=== PATIENT | female | born 1930 | race Caucasian/White ===

== ENCOUNTER 2016-11-04 11:01 | Inpatient (IN) | payer MEDICARE ==
[~2016-11-04] VITALS: Ht 167.6 cm; Wt 59.0 kg
[~2016-11-04 11:01] MED LIST: CEFEPIME INJ 2,000 MG in SODIUM CHLORIDE 0.9% INJ 100 ML IV SCH; DONE5TAB7 PO; LATA0.002 EACH EYE; TIMO0.2517 EACH EYE; [UNRECOGNIZED DRUG - OTHER]
[2016-11-04 11:30] VITALS: BP 144/79; PULSE 108; RESP 14; TEMP 102.9; O2SAT 100
[2016-11-04 11:33] VITALS: RESP 14; O2SAT 99
--- NOTE | 2016-11-04 11:34 | PD ---
HPI Chief Complaint: Altered Mental Status Time Seen by Provider: 11:30 Travel History International Travel<30 days: No Contact w/Intl Traveler<30days: No Traveled to known affect area: No History of Present Illness HPI 86-year-old female that presents to the ED for evaluation of possible sepsis and altered mental status. Patient is on the last stages of dementia per ambulance report and she is essentially nonverbal. This is normal for her. Apparently she is staying at the house with the family and today patient was found to have a fever of 10 walk on her own. This is unusual for her. She has no signs of trauma. Other than the fever there is no other abnormal vital. Patient is nonverbal so I cannot obtain any information from her. No family at the bedside. No paperwork was brought with the patient. Apparently family did try to contact the primary care doctor and they recommended that she comes here for rule out sepsis. Again and minimal history is obtained from the patient secondary to her severe dementia. PFSH Past Medical History Alzheimer's Disease: Yes Arthritis: No Cancer: No Cardiovascular Problems: No High Cholesterol: Yes Cerebrovascular Accident: No Diabetes: No Diminished Hearing: No Endocrine: No Genitourinary: No Hepatitis: No Hiatal Hernia: No Hypertension: Yes Immune Disorder: No Musculoskeletal: No Neurologic: No Psychiatric: Yes (ALZHEIMERS DISEASE) Respiratory: No Migraines: No Seizures: No Thyroid Disease: No Menopausal: Yes Past Surgical History Abdominal Surgery: No AICD: No Cardiac Surgery: No Ear Surgery: No Endocrine Surgery: No Eye Surgery: Yes (LASER PERIPHERAL IRIDOTOMY BOTH EYES) Genitourinary Surgery: No Gynecologic Surgery: No Joint Replacement: No Oral Surgery: No Pacemaker: No Thoracic Surgery: No Other Surgery: Yes Social History Alcohol Use: No Tobacco Use: No Substance Use: No Allergies-Medications (Allergen,Severity, Reaction): Coded Allergies: No Known Allergies (Verified , 11/04/16) Reported Meds & Prescriptions Reported Meds & Active Scripts Active [Mattress] Mattress for Hospital Bed Dx: G30.9 Reported Donepezil 5 Mg Tab 5 Mg PO HS Latanoprost Opth Drops (Latanoprost) 0.005% Drops 1 Drop EACH EYE HS Refrigerate until opened. Timolol Maleate (Timolol Maleate (Ophth)) 0.25 % Juanita 1 Drop EACH EYE Q12HR Review of Systems Except as stated in HPI: all other systems reviewed are Neg Physical Exam Narrative GENERAL: SKIN: Warm and dry. HEAD: Atraumatic. Normocephalic. EYES: Pupils equal and round 4 mm round to light accommodation. No scleral icterus. No injection or drainage. ENT: No nasal bleeding or discharge. Mucous membranes pink and moist. Tongue is midline. No uvula deviation. NECK: Trachea midline. No JVD. CARDIOVASCULAR: Regular rate and rhythm. No murmurs, S3, S4. RESPIRATORY: No accessory muscle use. Clear to auscultation. Breath sounds equal bilaterally. GASTROINTESTINAL: Abdomen soft, non-tender, nondistended. Hepatic and splenic margins not palpable. MUSCULOSKELETAL: Extremities without clubbing, cyanosis, or edema. No obvious deformities. Full range of motion of the upper and lower extremities bilaterally. 2+ pulses bilaterally. Cannot assess ambulation. NEUROLOGICAL: Awake and alert and seems to focus on questioning but does not really answer questions. No obvious cranial nerve deficits. Motor grossly within normal limits. Five out of 5 muscle strength in the arms and legs. Normal speech. PSYCHIATRIC: Demented mood and affect; insight and judgment not present Data Data Last Documented VS Vital Signs Date Time Temp Pulse Resp B/P Pulse Ox O2 Delivery O2 Flow Rate FiO2 11/04/16 11:33 14 99 Nasal Cannula 2 11/04/16 11:33 108 11/04/16 11:30 102.9 144/79 Orders Electrocardiogram (11/04/16 11:21) Complete Blood Count With Diff (11/04/16 11:21) Comprehensive Metabolic Panel (11/04/16 11:21) Creatine Kinase (Cpk) (11/04/16 11:21) Ckmb (Isoenzyme) Profile (11/04/16 11:21) Troponin I (11/04/16 11:21) Prothrombin Time / Inr (Pt) (11/04/16 11:21) Act Partial Throm Time (Ptt) (11/04/16 11:21) Blood Culture (11/04/16 11:21) Lipase (11/04/16 11:21) Urinalysis - C+S If Indicated (11/04/16 11:21) Thyroid Stimulating Hormone (11/04/16 11:21) Chest, Single Ap (11/04/16 11:21) Ct Brain W/O Iv Contrast(Rout) (11/04/16 11:21) Iv Access Insert/Monitor (11/04/16 11:21) Ecg Monitoring (11/04/16 11:21) Oximetry (11/04/16 11:21) Urinary Catheter Insert/Apply (11/04/16 11:21) Lactic Acid (11/04/16 11:21) Sodium Chlor 0.9% 1000 Ml Inj (Ns 1000 M (11/04/16 12:10) Acetaminophen 325 Mg/10 Ml Liq (Tylenol (11/04/16 12:15) Urine Culture (11/04/16 12:00) Influenzae A/B Antigen (11/04/16 12:53) Cefepime Inj (Maxipime Inj) (11/04/16 12:53) Labs Laboratory Tests Test 11/04/16 11/04/16 11:40 12:00 White Blood Count 18.0 TH/MM3 Red Blood Count 4.80 MIL/MM3 Hemoglobin 14.0 GM/DL Hematocrit 42.1 % Mean Corpuscular Volume 87.7 FL Mean Corpuscular Hemoglobin 29.1 PG Mean Corpuscular Hemoglobin 33.2 % Concent Red Cell Distribution Width 14.5 % Platelet Count 275 TH/MM3 Mean Platelet Volume 9.7 FL Neutrophils (%) (Auto) 85.9 % Lymphocytes (%) (Auto) 6.0 % Monocytes (%) (Auto) 7.8 % Eosinophils (%) (Auto) 0.0 % Basophils (%) (Auto) 0.3 % Neutrophils # (Auto) 15.5 TH/MM3 Lymphocytes # (Auto) 1.1 TH/MM3 Monocytes # (Auto) 1.4 TH/MM3 Eosinophils # (Auto) 0.0 TH/MM3 Basophils # (Auto) 0.1 TH/MM3 CBC Comment DIFF FINAL Differential Comment Prothrombin Time 11.3 SEC Prothromb Time International 1.0 RATIO Ratio Activated Partial 28.9 SEC Thromboplast Time Sodium Level 135 MEQ/L Potassium Level 4.6 MEQ/L Chloride Level 101 MEQ/L Carbon Dioxide Level 25.7 MEQ/L Anion Gap 8 MEQ/L Blood Urea Nitrogen 12 MG/DL Creatinine 0.90 MG/DL Estimat Glomerular Filtration 60 ML/MIN Rate Random Glucose 122 MG/DL Lactic Acid Level 2.1 mmol/L Calcium Level 8.8 MG/DL Total Bilirubin 0.8 MG/DL Aspartate Amino Transf 19 U/L (AST/SGOT) Alanine Aminotransferase 14 U/L (ALT/SGPT) Alkaline Phosphatase 193 U/L Total Creatine Kinase 55 U/L Troponin I LESS THAN 0.02 NG/ML Total Protein 8.6 GM/DL Albumin 3.6 GM/DL Lipase 92 U/L Thyroid Stimulating Hormone 1.400 uIU/ML 3rd Gen Urine Color YELLOW Urine Turbidity HAZY Urine pH 8.0 Urine Specific [place] 1.015 Urine Protein 30 mg/dL Urine Glucose (UA) NEG mg/dL Urine Ketones NEG mg/dL Urine Occult Blood MOD Urine Nitrite NEG Urine Bilirubin NEG Urine Urobilinogen LESS THAN 2.0 MG/DL Urine Leukocyte Esterase LARGE Urine RBC 27 /hpf Urine WBC 81 /hpf Urine Squamous Epithelial 1 /hpf Cells Urine Transitional Epithelial 1 /hpf Cells Urine Amorphous Sediment RARE Microscopic Urinalysis Comment CULTURE INDICATED MDM Medical Decision Making Medical Screen Exam Complete: Yes Emergency Medical Condition: Yes Medical Record Reviewed: Yes Interpretation(s) CBC & BMP Diagram 11/04/16 11:40 troponin and CKMB negative CK WNL TSH WNL coags WNL LFTS and lipase WNL lactic 2.[address] negative EKG shows sinus rhythm with a sign of acute ischemia or arrhythmia. Read by me and attending. Differential Diagnosis Dementia versus Alzheimer's versus altered mental status versus sepsis versus pneumonia versus URI versus UTI Narrative Course 86-year-old female that presents to the ED for evaluation of possible sepsis. Patient was properly examined and was found to have signs and symptoms consistent what appears to be sepsis. Labs and imaging ordered. Labs and imaging showed symptoms of sepsis. Likely UTI. Chest x-ray and CT were negative. No sign of heart disease at this time. My recommendation at this time is for admission for IV fluids and antibiotics. Patient was already given a liter before waiting for labs. Patient will be started on IV antibiotics. Case was discussed with attending who agrees with plan and admission. This was discussed with the family who did show up and provide information that patient apparently is actually non-ambulatory and usually ambulates in a wheelchair or with assistance. Patient enough had a fall. Patient was at baseline yesterday but today she was more somnolent and when awake To who they state patient always wakes up at 9:30 like a work but today she was not arousable. Other than this no other symptoms. Other than the fever noted. Labs did show UTI. Family is agreeable with admission to the hospital for IV antibiotic some fluids. Case discussed with my attending Dr. Mcfadden who agrees to admission. Residents were contacted and they agreed to admission. 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
[2016-11-04 11:56] LABS: AUTOMATED NEUTROPHIL # 15.5 TH/MM3 (1.8-7.7); BASOPHIL # 0.1 TH/MM3 (0-0.2); BASOPHIL % 0.3 % (0.0-2.0); HEMATOCRIT 42.1 % (35.0-46.0); HEMO FLAGS DIFF FINAL; LYMPHOCYTE # 1.1 TH/MM3 (1.0-4.8); MEAN CELL VOLUME 87.7 FL (80.0-100.0); MEAN CORPUSCULAR HEMOGLOBIN 29.1 PG (27.0-34.0); MEAN CORPUSCULAR HGB CONC 33.2 % (32.0-36.0); MONO % 7.8 % (0.0-8.0); NEUT % 85.9 % (16.0-70.0); PLATELET COUNT 275 TH/MM3 (150-450); RED CELL DISTRIBUTION WIDTH 14.5 % (11.6-17.2)
[2016-11-04 12:07] LABS: PROTHROMBIN TIME - PATIENT 11.3 SEC (9.8-11.6)
[2016-11-04 12:08] LABS: APTT (PATIENT) 28.9 SEC (24.3-30.1)
[2016-11-04] MEDS ORDERED: SODIUM CHLOR 0.9% 1000 ML INJ 1,000 ML IV ONE (12:10)
[2016-11-04] MEDS ORDERED: ACETAMINOPHEN 325 MG/10.15 ML UDC PO ONE (12:15)
[2016-11-04 12:33] LABS: ALKALINE PHOSPHATASE 193 U/L (45-117); ALT (GPT) 14 U/L (10-53); ANION GAP 8 MEQ/L (5-15); BICARBONATE 25.7 MEQ/L (21.0-32.0); BLOOD UREA NITROGEN 12 MG/DL (7-18); CHLORIDE 101 MEQ/L (98-107); GLOMERULAR FILTRATION RATE 60 ML/MIN (>89); SODIUM (NA) 135 MEQ/L (136-145); TOTAL BILIRUBIN ADULT 0.8 MG/DL (0.2-1.0)
[2016-11-04 12:34] LABS: AST (GOT) 19 U/L (15-37); CREATINE KINASE 55 U/L (26-192); POTASSIUM 4.6 MEQ/L (3.5-5.1)
[2016-11-04 12:36] LABS: BLOOD, URINE MOD (NEG); GLUCOSE,URINE NEG (NEG); KETONE, URINE NEG (NEG); NITRITE,URINE NEG (NEG); SQUAMOUS EPITHELIAL CELL URINE 1 /hpf (0-5); TRANSITIONAL EPI CELLS, URINE 1 /hpf; URINE COLOR YELLOW (YELLW/STRAW)
[2016-11-04 12:48] LABS: COMMENT (UR) CULTURE INDICATED; CULTURE IF INDICATED CULTURE INDICATED
[2016-11-04] MEDS ORDERED: CEFEPIME INJ 2,000 MG in SODIUM CHLORIDE 0.9% INJ 100 ML IV STA (12:53)
--- NOTE | 2016-11-04 12:59 | RADRPT ---
EXAM DATE/TIME: 11/04/2016 12:09 [facility] COMPARISON: No previous studies available for comparison. INDICATIONS : Unable to walk today. RADIATION DOSE: 30.11 CTDIvol (mGy) MEDICAL HISTORY : Hypertension. Alzheimer's. SURGICAL HISTORY : Eye surgery ENCOUNTER: Initial ACUITY: 2 days PAIN SCALE: Non-responsive LOCATION: cranial TECHNIQUE: Multiple contiguous axial images were obtained of the head. Using automated exposure control and adj ustment of the mA and/or kV according to patient size, radiation dose was kept as low as reasonably a chievable to obtain optimal diagnostic quality images. FINDINGS: CEREBRUM: The ventricles are mildly prominent for age. There is diffuse bilateral cortical atrophy. No evidenc e of midline shift, mass lesion, hemorrhage or acute infarction. No extra-axial fluid collections ar e seen. POSTERIOR FOSSA: The cerebellum and brainstem are intact. The 4th ventricle is midline. The cerebellopontine angle i s unremarkable. EXTRACRANIAL: The visualized portion of the orbits is intact. SKULL: The calvaria is intact. No evidence of skull fracture. CONCLUSION: 1. No focal or acute intracranial hemorrhage. 2. Diffuse bilateral cortical atrophy. There is some prominence of the ventricles. This can be associ ated with patient's cortical atrophy. Normal pressure hydrocephalus would be a second consideration w hich would need to be correlated with patient's physical and clinical exam. Haile Navarro MD on November 04, 2016 at 12:56 Board Certified Radiologist. This report was verified electronically.
--- NOTE | 2016-11-04 14:10 | RADRPT ---
EXAM DATE/TIME: 11/04/2016 13:23 [facility] COMPARISON: CHEST SINGLE AP, April 09, 2015, 13:13. INDICATIONS : Fever. MEDICAL HISTORY : None. SURGICAL HISTORY : None. ENCOUNTER: Initial ACUITY: 1 day PAIN SCORE: Non-responsive. LOCATION: Bilateral chest FINDINGS: The cardiac silhouette is enlarged in transverse diameter. The patient is rotated into the right post erior oblique position. The lungs are free of acute parenchymal opacity. No effusions are identified. CONCLUSION: 1. Cardiomegaly. No acute pulmonary disease. Anoop Mike MD on November 04, 2016 at 14:09 Board Certified Radiologist. This report was verified electronically.
--- NOTE | 2016-11-04 14:17 | HHI.HP ---
[facility] Service Family Medicine Primary Care Physician Mark Nevarez MD Admission Diagnosis altered mental status, urosepsis, dementia Diagnoses: Chief Complaint: Patient unarousable International Travel<30 Days: No Contact w/Intl Traveler<30days: No Known Affected Area: No History of Present Illness Michelle Rodgers is an 86 year old female with Alzheimer's disease brought to ED by [facility] after her was unable to arouse her this morning. Her states he wakes her up every morning at 09:30 without difficulty however this morning the patient was completely unarousable. He states she could not open her eyes and was non-verbal. He states the patient was at her baseline status throughout all of yesterday and fell asleep at what is now her normal state of health. states at baseline the patient is unable to walk around on her own and unable to feed herself. She is verbal, however due to her late-stage dementia she will speak randomly and is primarily unable to carry out a conversation. The denies any recent signs or symptoms of an illness, he denies any recent fevers, cough, urinary complaints from the patient or any foul -smelling urine, rhinorrhea or congestion, no complaints of abdominal pain or diarrhea or N/V. He denies any incontinence from the patient when going to wake her up this morning. Denies any history of seizures or any seizure-like activity today. No other sick contacts. He states her appetite has not changed recently. (Mikal Ramsey MD R1) Review of Systems ROS Limitations: Clinical Condition (Mikal Ramsey MD R1) Past Family Social History Past Medical History HTN HLD Alzheimer's disease Past Surgical History Bilateral laser peripheral iridotomy Reported Medications Reported Meds & Active Scripts Active [Mattress] Mattress for Hospital Bed Dx: G30.9 Reported Donepezil 5 Mg Tab 5 Mg PO HS Latanoprost Opth Drops (Latanoprost) 0.005% Drops 1 Drop EACH EYE HS Refrigerate until opened. Timolol Maleate (Timolol Maleate (Ophth)) 0.25 % Juanita 1 Drop EACH EYE Q12HR ( Mikal Ramsey MD R1) Allergies: Coded Allergies: No Known Allergies (Verified , 11/04/16) Family History Noncontributory Social History Lives at home with her (BraulioMikal LISA R1) Physical Exam Vital Signs Vital Signs Date Time Temp Pulse Resp B/P Pulse Ox O2 Delivery O2 Flow Rate FiO2 11/04/16 11:33 14 99 Nasal Cannula 2 11/04/16 11:33 108 14 100 Nasal Cannula 2 11/04/16 11:30 102.9 108 14 144/79 100 Physical Exam GENERAL: Lying in bed with eyes closed, appears comfortable, skin is not clammy or moist, intermittently able to move all extremities spontaneously, she did not open her eyes at any point during the examination. It did seem she softly said her name Michelle when she addressed during the exam. NEURO: Obtunded. Unable to open eyes. Able to move extremities spontaneously. Patellar reflex 2+ b/l. SKIN: Her skin is warm throughout including her feet but not clammy or moist. Feels well perfused. No skin breakdown anywhere including low back and buttock. Multiple SKs on back. HEAD: Normocephalic. Atraumatic. EYES: Her left eye pupil is irregular with jagged edges and very slightly reactive to light, right eye is round and reactive. No injection. ENT: No nasal drainage. Moist mucous membranes. No oral ulcers or lesions. NECK: Supple, trachea midline. No JVD. No carotid bruits. CARDIOVASCULAR: Tachycardic rate, regular rhythm without murmurs, rubs, or gallops. Radial, DP and PT pulses are 2+ bilaterally. Brisk capillary refill < 2 seconds. RESPIRATORY: Breath sounds clear to auscultation and equal bilaterally, without wheezes, rales, or rhonchi. No accessory muscle use. GASTROINTESTINAL: Abdomen soft, appears to be nontender, nondistended, normal BS. No organomegaly or masses. No rebound tenderness. MUSCULOSKELETAL: No edema, cyanosis, or clubbing. BACK: No obvious deformity. No skin breakdown. Laboratory Laboratory Tests Test 11/04/16 11/04/16 11:40 12:00 White Blood Count 18.0 Red Blood Count 4.80 Hemoglobin 14.0 Hematocrit 42.1 Mean Corpuscular Volume 87.7 Mean Corpuscular Hemoglobin 29.1 Mean Corpuscular Hemoglobin 33.2 Concent Red Cell Distribution Width 14.5 Platelet Count 275 Mean Platelet Volume 9.7 Neutrophils (%) (Auto) 85.9 Lymphocytes (%) (Auto) 6.0 Monocytes (%) (Auto) 7.8 Eosinophils (%) (Auto) 0.0 Basophils (%) (Auto) 0.3 Neutrophils # (Auto) 15.5 Lymphocytes # (Auto) 1.1 Monocytes # (Auto) 1.4 Eosinophils # (Auto) 0.0 Basophils # (Auto) 0.1 CBC Comment DIFF FINAL Differential Comment Prothrombin Time 11.3 Prothromb Time International 1.0 Ratio Activated Partial 28.9 Thromboplast Time Sodium Level 135 Potassium Level 4.6 Chloride Level 101 Carbon Dioxide Level 25.7 Anion Gap 8 Blood Urea Nitrogen 12 Creatinine 0.90 Estimat Glomerular Filtration 60 Rate Random Glucose 122 Lactic Acid Level 2.1 Calcium Level 8.8 Total Bilirubin 0.8 Aspartate Amino Transf 19 (AST/SGOT) Alanine Aminotransferase 14 (ALT/SGPT) Alkaline Phosphatase 193 Total Creatine Kinase 55 Troponin I LESS THAN 0.02 Total Protein 8.6 Albumin 3.6 Lipase 92 Thyroid Stimulating Hormone 1.400 3rd Gen Urine Color YELLOW Urine Turbidity HAZY Urine pH 8.0 Urine Specific [place] 1.015 Urine Protein 30 Urine Glucose (UA) NEG Urine Ketones NEG Urine Occult Blood MOD Urine Nitrite NEG Urine Bilirubin NEG Urine Urobilinogen LESS THAN 2.0 Urine Leukocyte Esterase LARGE Urine RBC 27 Urine WBC 81 Urine Squamous Epithelial 1 Cells Urine Transitional Epithelial 1 Cells Urine Amorphous Sediment RARE Microscopic Urinalysis Comment CULTURE INDICATED Date/Time Procedure Status Source Growth 11/04/16 12:00 Urine Culture Received Urine Clean Catch Pending 11/04/16 11:45 Aerobic Blood Culture Received Blood Peripheral Pending 11/04/16 11:45 Anaerobic Blood Culture Received Blood Peripheral Pending (Mikal Ramsey MD R1) Result Diagram: 11/04/16 1140 11/04/16 1140 Imaging Last [address] 11/04/16 1121 Signed Impressions: Service Date/Time: October 12:09 - CONCLUSION: 1. No focal or acute intracranial hemorrhage. 2. Diffuse bilateral cortical atrophy. There is some prominence of the ventricles. This can be associated with patient's cortical atrophy. Normal pressure hydrocephalus would be a second consideration which would need to be correlated with patient's physical and clinical exam. Haile Navarro MD Chest X-Ray 11/04/16 1121 Signed Impressions: Service Date/Time: October 13:23 - CONCLUSION: 1. Cardiomegaly. No acute pulmonary disease. Anoop Mike MD (Mikal Ramsey MD R1) Septic Shock Reassessment Heart: Other (Tachycardic) Lungs: Clear Skin: Warm, Dry Peripheral Pulses: Bounding Right Radial Bounding Left Radial Bounding Right Dorsalis Pedis Bounding Left Dorsalis Pedis Bounding Right Posterior Tibial Bounding Left Posterior Tibial Capillary Refill: Brisk (Mikal Ramsey MD R1) Assessment and Plan Assessment and Plan Michelle Rodgers is an 86 year old female with Alzheimer's disease brought to ED by [facility] after her was unable to arouse her this morning. She will be admitted and managed for the following: Code Status DNR/DNI Discussed Condition With sdw Dr. Bill Izaguirre (Mikal Ramsey MD R1) Problem List: (1) UTI (urinary tract infection) Status: Acute Plan: Temp of 102.9F taken axillary in the ED. Tachycardic up to 108. Labs significant for leukocytosis to 18.0 and lactic acid of 2.1 Cath specimen UA with large leukocyte esterase, negative nitrite, 81 WBCs. Arana catheter was placed by ED staff; patient did not have an indwelling catheter prior to arrival Urine culture pending 1L NS bolus given in the ED Will continue NS at 100 mL/hr Received 2gm IV Cefepime in ED Continue Cefepime 2 gm IV q12h (2) Sepsis Status: Acute Plan: Meets sepsis criteria Blood and urine cultures obtained Received 1L NS in the ED The patient appears well perfused with just mildly elevated lactic acid of 2.1. We will hold from giving additional fluid boluses at this time however will monitor her vital signs closely and continue to trend her lactic acid q4h and bolus if needed Continue NS at 100 mL/hr Antibiotics as above (3) Alzheimer disease Status: Chronic Plan: Continue Donepezil (4) Nutrition, metabolism, and development symptoms Status: Acute Plan: Fluids: 1L NS given in ED. Continue NS at 100 mL/hr Electrolytes: Na 135, continue to monitor BMP Nutrition: NPO DVT PPX: Lovenox 40 mg subq q24h (Mikal Ramsey MD R1) Physician Certification 2 Midnight Certification Type: Admission for Inpatient Services Order for Inpatient Services The services are ordered in accordance with Medicare regulations or non- Medicare payer requirements, as applicable. In the case of services not specified as inpatient-only, they are appropriately provided as inpatient services in accordance with the 2-midnight benchmark. Estimated LOS (days): 2 days is the estimated time the patient will need to remain in the hospital, assuming treatment plan goals are met and no additional complications. Post-Hospital Plan: Home (Mikal Ramsey MD R1) 2 Midnight Certification Type: Admission for Inpatient Services Post-Hospital Plan: Not yet determined (John Izaguirre MD) Problem Qualifiers (1) UTI (urinary tract infection): Qualified Code: N30.00 - Acute cystitis without hematuria (2) Sepsis: Qualified Code: A41.9 - Sepsis, due to unspecified organism Mikal Ramsey MD R1 Nov 04, 2016 14:17 John Izaguirre MD Nov 04, 2016 16:26
[2016-11-04] MEDS: SODIUM CHLORIDE 0.9% FLUSH 5 ML FLUSH FLUSH SCH ×2 (15:00→20:58)
[2016-11-04] MEDS ORDERED: NALOXONE HCL 0.4 MG/ML AMP IV PRN (15:00)
[2016-11-04] MEDS ORDERED: SODIUM CHLORIDE 0.9% FLUSH 5 ML FLUSH FLUSH PRN (15:00)
[2016-11-04] MEDS ORDERED: ACETAMINOPHEN 325 MG TAB PO PRN (15:00)
[2016-11-04 15:14] VITALS: O2SAT 97
[2016-11-04] MEDS: SODIUM CHLOR 0.9% 1000 ML INJ 1,000 ML IV SCH ×2 (15:41→23:59)
[2016-11-04 15:48] VITALS: BP 144/70; PULSE 100; RESP 16; TEMP 100.7; O2SAT 100
[2016-11-04] MEDS: ENOXAPARIN SODIUM 40 MG/0.4 ML SYRINGE SQ SCH (16:00)
--- NOTE | 2016-11-04 17:06 | HHI.FPPN ---
Subjective Remarks Attending note: 86-year-old woman, patient of Dr. Rodney Nevarez, admitted with altered mental status, temperature 102, abnormal urinalysis. Patient's and son are at bedside and provides the history. The patient herself is unable to provide any meaningful history. relates that she's had Alzheimer's dementia for at least 7-8 years, is totally dependent on him for care with regards to dressing, meals, and essentially total body care. states they were out to dinner last night, she was at her baseline state which is generally being transported by a wheelchair, and at the time had no unusual signs of infection including cough, reports of vomiting or diarrhea. This morning her noticed that she was unarousable and this was a definite change in her mental status. Please see resident history and physical for complete discussion of past medical history, family history social history and review of systems. The review of systems was obtained from the , the patient is unable to give any meaningful history. Objective Vitals Vital Signs Date Time Temp Pulse Resp B/P Pulse Ox O2 Delivery O2 Flow Rate FiO2 11/04/16 15:48 100.7 100 16 144/70 100 Nasal Cannula 2 11/04/16 15:14 97 Nasal Cannula 2.00 11/04/16 11:33 14 99 Nasal Cannula 2 11/04/16 11:33 108 14 100 Nasal Cannula 2 11/04/16 11:30 102.9 108 14 144/79 100 Result Diagram: 11/04/16 1140 11/04/16 1140 Objective Remarks Vital signs noted. Temperature earlier axillary was 102.9. Gen. appearance: Elderly woman who appears very withdrawn, eyes are closed and unable to cooperate with exam. Significant hypertonia of the upper and lower extremities. HEENT: Unable to open patient's mouth with tongue depressor. Lungs: Diminished breath sounds, appear clear to auscultation. Cardiac: Distant sounds S1-S2, increased rate, rhythm regular Abdomen: As best able to examine due to soft and nontender. Flexed hypertonic arms make abdominal exam suboptimal Extremities: Supple calves, feet are warm and dry, intact pedal pulses. Neurologic: Does not indicate orally, hypertonic extremities Please refer to resident's physical exam for complete discussion of details of exam. A/P Assessment and Plan Clinical assessment: 86-year-old woman totally dependent on her for activities of daily living admitted with altered mental status, fever, abnormal urine and clinical diagnosis of probable UTI with possible bacteremia, possible sepsis. History of glaucoma. Discussed with Dr. Nevarez and resident team. Patient seen and examined. Case reviewed and discussed with resident team. Agree with plan of care as discussed with me and documented in the resident note. Follow clinically. Patient is DNR, DNI. Problem List: (1) UTI (urinary tract infection) Status: Acute Plan: Temp of 102.9F taken axillary in the ED. Tachycardic up to 108. Labs significant for leukocytosis to 18.0 and lactic acid of 2.1 Cath specimen UA with large leukocyte esterase, negative nitrite, 81 WBCs. Arana catheter was placed by ED staff; patient did not have an indwelling catheter prior to arrival Urine culture pending 1L NS bolus given in the ED Will continue NS at 100 mL/hr Received 2gm IV Cefepime in ED Continue Cefepime 2 gm IV q12h (2) Sepsis Status: Acute Plan: Meets sepsis criteria Blood and urine cultures obtained Received 1L NS in the ED The patient appears well perfused with just mildly elevated lactic acid of 2.1. We will hold from giving additional fluid boluses at this time however will monitor her vital signs closely and continue to trend her lactic acid q4h and bolus if needed Continue NS at 100 mL/hr Antibiotics as above (3) Alzheimer disease Status: Chronic Plan: Continue Donepezil (4) Nutrition, metabolism, and development symptoms Status: Acute Plan: Fluids: 1L NS given in ED. Continue NS at 100 mL/hr Electrolytes: Na 135, continue to monitor BMP Nutrition: NPO DVT PPX: Lovenox 40 mg subq q24h Problem Qualifiers (1) UTI (urinary tract infection): Qualified Code: N30.00 - Acute cystitis without hematuria (2) Sepsis: Qualified Code: A41.9 - Sepsis, due to unspecified organism John Izaguirre MD Nov 04, 2016 17:06
[2016-11-04 18:23] LABS: LACTIC ACID GHOST NOT REPORTABLE
[2016-11-04 20:00] VITALS: BP 110/62; PULSE 52; RESP 18; TEMP 97.6; O2SAT 97
[2016-11-04] MEDS: DONEPEZIL HCL 5 MG TAB PO SCH (20:58)
[2016-11-05] VITALS (10 sets, daily range): BP systolic 112–156; BP diastolic 62–78; PULSE 74–101; RESP 18–24; TEMP 96.8–100.8; O2SAT 93–99
[2016-11-05] MEDS: CEFEPIME INJ 2,000 MG in SODIUM CHLORIDE 0.9% INJ 100 ML IV SCH ×2 (01:32→15:07)
[2016-11-05 06:08] LABS: BASOPHIL % 0.2 % (0.0-2.0); EOSINOPHIL % 0.1 % (0.0-4.0); HEMATOCRIT 37.2 % (35.0-46.0); LYMPH % 9.1 % (9.0-44.0); MEAN CELL VOLUME 87.6 FL (80.0-100.0); MEAN CORPUSCULAR HEMOGLOBIN 29.7 PG (27.0-34.0); MEAN CORPUSCULAR HGB CONC 33.9 % (32.0-36.0); MONO % 9.9 % (0.0-8.0); NEUT % 80.7 % (16.0-70.0); PLATELET COUNT 200 TH/MM3 (150-450); RED BLOOD COUNT 4.24 MIL/MM3 (4.00-5.30); RED CELL DISTRIBUTION WIDTH 14.5 % (11.6-17.2); WHITE BLOOD COUNT 22.2 TH/MM3 (4.0-11.0)
[2016-11-05 06:12] LABS: HEMO FLAGS AUTO DIFF
[2016-11-05 06:40] LABS: ALKALINE PHOSPHATASE 142 U/L (45-117); ALT (GPT) 11 U/L (10-53); ANION GAP 7 MEQ/L (5-15); AST (GOT) 12 U/L (15-37); BICARBONATE 23.9 MEQ/L (21.0-32.0); BLOOD UREA NITROGEN 17 MG/DL (7-18); CHLORIDE 109 MEQ/L (98-107); GLOMERULAR FILTRATION RATE 76 ML/MIN (>89); POTASSIUM 3.8 MEQ/L (3.5-5.1); SODIUM (NA) 140 MEQ/L (136-145); TOTAL BILIRUBIN ADULT 0.8 MG/DL (0.2-1.0)
[2016-11-05] MEDS: SODIUM CHLORIDE 0.9% FLUSH 5 ML FLUSH FLUSH SCH ×2 (07:32→20:48)
[2016-11-05] MEDS: SODIUM CHLOR 0.9% 1000 ML INJ 1,000 ML IV SCH ×3 (07:59→15:35)
--- NOTE | 2016-11-05 08:03 | RADRPT ---
EXAM DATE/TIME: 11/05/2016 07:25 [facility] COMPARISON: CHEST SINGLE AP, April 09, 2015, 13:13. CHEST SINGLE AP, November 04, 2016, 13:23. INDICATIONS : Short of breath. Pneumonia. MEDICAL HISTORY : Hypertension. Hypercholesterolemia. Alzeimer's. SURGICAL HISTORY : Eye surgery. Right hip. ENCOUNTER: Subsequent ACUITY: 2 days PAIN SCORE: Non-responsive. LOCATION: chest FINDINGS: A single view of the chest demonstrates the lungs to be symmetrically aerated without evidence of mas s, infiltrate or effusion. The patient is rotated towards the right. The cardiomediastinal contours are unremarkable. There appear to be compressive changes at T12. CONCLUSION: No acute cardiopulmonary disease. There does appear to be some compression at T12. Case Stubbs MD on November 05, 2016 at 8:00 Board Certified Radiologist. This report was verified electronically.
[2016-11-05 09:13] LABS: SCAN/DIFF AUTO DIFF CONFIRMED
--- NOTE | 2016-11-05 09:35 | HHI.FPPN ---
Subjective Remarks No events overnight. Patients fever has resolved. Vitals are within normal limits. Patients daughter in law report Michelle is at her baseline neurological status. Patient is awake and alert this morning. Her requested this morning for a diet and ensure supplements which is her normal diet at home. The daughter in laws only complaints this morning is that Neeru peripheral IV line infiltrated and she now has some swelling of her right distal arm, this has significantly improved from earlier this morning. She is otherwise without complaints or concerns. Objective Vitals Vital Signs Date Time Temp Pulse Resp B/P Pulse Ox O2 Delivery O2 Flow Rate FiO2 11/05/16 08:00 96.8 79 18 114/62 98 11/05/16 05:12 97 Nasal Cannula 2.00 11/05/16 05:00 97.0 74 24 125/65 95 11/05/16 01:00 97.9 11/05/16 01:00 97.9 80 21 130/67 93 11/04/16 20:00 97.6 52 18 110/62 97 11/04/16 15:48 100.7 100 16 144/70 100 Nasal Cannula 2 11/04/16 15:14 97 Nasal Cannula 2.00 11/04/16 11:33 14 99 Nasal Cannula 2 11/04/16 11:33 108 14 100 Nasal Cannula 2 11/04/16 11:30 102.9 108 14 144/79 100 I/O 11/04/16 11/04/16 11/04/16 11/05/16 11/05/16 11/05/16 07:00 15:00 23:00 07:00 15:00 23:00 Intake Total 500 ml Output Total 700 ml Balance -200 ml Intake Oral 500 ml Output Urine Total 700 ml # Bowel Movements 0 Result Diagram: 11/05/16 0536 11/05/16 0536 Objective Remarks GENERAL: Lying comfortably in bed with eyes opened, skin is not clammy or moist. NEURO: Awake and alert. Verbal briefly. Unable to follow commands consistently. Able to move extremities spontaneously. SKIN: Her skin is warm throughout including her feet but not clammy or moist. Feels well perfused. No skin breakdown. HEAD: Normocephalic. Atraumatic. EYES: Her left pupil is irregular with jagged edges and very slightly reactive to light, right eye is round and reactive. No injection. ENT: No nasal drainage. Moist mucous membranes. No oral ulcers or lesions. NECK: Supple, trachea midline. No JVD. CARDIOVASCULAR: Regular rate and rhythm without murmurs, rubs, or gallops. Radial, DP and PT pulses are 2+ bilaterally. Brisk capillary refill < 2 seconds. RESPIRATORY: Breath sounds clear to auscultation and equal bilaterally, without wheezes, rales, or rhonchi. No accessory muscle use. GASTROINTESTINAL: Abdomen soft, appears to be nontender, nondistended, normal BS. No organomegaly or masses. No rebound tenderness. MUSCULOSKELETAL: No edema, cyanosis, or clubbing. BACK: No obvious deformity. No skin breakdown. A/P Assessment and Plan Michelle Rodgers is an 86 year old female with Alzheimer's disease brought to ED by [facility] after her was unable to arouse her the morning of 11/04. She is admitted and managed for the following: Discharge Planning Anticipate discharge home tomorrow. Problem List: (1) UTI (urinary tract infection) Status: Acute Plan: Fever and tachycardia resolved Leukocytosis increased to 22.2 Lactic acid downtrended to 0.8, reassuring Cath specimen UA with large leukocyte esterase, negative nitrite, 81 WBCs. Arana catheter was placed by ED staff; patient did not have an indwelling catheter prior to arrival Urine culture still pending, will follow Continue NS at 125 mL/hr Continue Cefepime 2 gm IV q12h Discontinue Arana catheter (2) Sepsis Status: Acute Plan: Met sepsis criteria on admission Blood and urine cultures obtained, will follow Lactic acid downtrended to 0.8 Continue NS at 125 mL/hr Antibiotics as above Repeat CXR showing no cardiopulmonary disease (3) Alzheimer disease Status: Chronic Plan: Continue Donepezil (4) Nutrition, metabolism, and development symptoms Status: Acute Plan: Fluids: Continue NS at 125 mL/hr Electrolytes: WNLs Nutrition: Regular diet, supplement with ensure shakes DVT PPX: Lovenox 40 mg subq q24h dw Dr. Andrew wdw Dr. Izaguirre Problem Qualifiers (1) UTI (urinary tract infection): Qualified Code: N30.00 - Acute cystitis without hematuria (2) Sepsis: Qualified Code: A41.9 - Sepsis, due to unspecified organism Mikal Ramsey MD R1 Nov 05, 2016 09:35
[2016-11-05] MEDS: ENOXAPARIN SODIUM 40 MG/0.4 ML SYRINGE SQ SCH (15:11)
[2016-11-05] MEDS: LATANOPROST 0.005% OPHT SOLN 2.5 ML BTL EACH EYE SCH (20:48)
[2016-11-05] MEDS: DONEPEZIL HCL 5 MG TAB PO SCH (20:49)
--- NOTE | 2016-11-05 23:03 | EKG ---
Date Performed: 11/04/2016 Time Performed: 11:45:18 PTAGE: 86 years EKG: SINUS TACHYCARDIA NONSPECIFIC ST & T-WAVE ABNORMALITY ABNORMAL RHYTHM ECG INTERPRETATION BA SED ON A DEFAULT AGE OF 40 YEARS PREVIOUS TRACING : 04/09/2015 12.35 DOCTOR: Vandana Osullivan Interpretating Date/Time 11/05/2016 22:53:29
[2016-11-06] VITALS: BP 149/67; PULSE 85; RESP 18; TEMP 99.5; O2SAT 96
[2016-11-06] MEDS: CEFEPIME INJ 2,000 MG in SODIUM CHLORIDE 0.9% INJ 100 ML IV SCH ×2 (01:24→14:35)
[2016-11-06] MEDS: SODIUM CHLOR 0.9% 1000 ML INJ 1,000 ML IV SCH (05:21)
[2016-11-06 06:12] VITALS: BP 145/67; PULSE 78; RESP 18; TEMP 98; O2SAT 96
[2016-11-06 07:57] VITALS: BP 135/72; PULSE 78; RESP 20; TEMP 97.9; O2SAT 97
[2016-11-06] MEDS: SODIUM CHLORIDE 0.9% FLUSH 5 ML FLUSH FLUSH SCH ×2 (09:00→21:00)
[2016-11-06 09:58] LABS: AUTOMATED NEUTROPHIL # 7.4 TH/MM3 (1.8-7.7); BASOPHIL # 0.1 TH/MM3 (0-0.2); BASOPHIL % 0.6 % (0.0-2.0); EOSINOPHIL # 0.1 TH/MM3 (0-0.4); EOSINOPHIL % 0.5 % (0.0-4.0); HEMATOCRIT 36.1 % (35.0-46.0); HEMO FLAGS DIFF FINAL; LYMPH % 20.4 % (9.0-44.0); LYMPHOCYTE # 2.2 TH/MM3 (1.0-4.8); MEAN CELL VOLUME 88.2 FL (80.0-100.0); MEAN CORPUSCULAR HEMOGLOBIN 29.3 PG (27.0-34.0); MEAN CORPUSCULAR HGB CONC 33.3 % (32.0-36.0); MONO % 9.5 % (0.0-8.0); PLATELET COUNT 207 TH/MM3 (150-450); RED BLOOD COUNT 4.09 MIL/MM3 (4.00-5.30); RED CELL DISTRIBUTION WIDTH 14.4 % (11.6-17.2); WHITE BLOOD COUNT 10.8 TH/MM3 (4.0-11.0)
[2016-11-06 10:17] LABS: BICARBONATE 23.1 MEQ/L (21.0-32.0); POTASSIUM 3.1 MEQ/L (3.5-5.1)
--- NOTE | 2016-11-06 11:43 | HHI.FPPN ---
Subjective Remarks Attending note: Patient seen with the resident team and nurse. and son at bedside. Patient is more alert, eyes are open, patient did speak during visit however words were not intelligible. and son think the patient is doing better, she's not as alert and interactive but certainly much better than when she was admitted. Discussed discharge planning home. Objective Vitals Vital Signs Date Time Temp Pulse Resp B/P Pulse Ox O2 Delivery O2 Flow Rate FiO2 11/06/16 07:57 97.9 78 20 135/72 97 11/06/16 06:12 98.0 78 18 145/67 96 11/06/16 00:00 99.5 85 18 149/67 96 11/05/16 20:00 99.4 99 18 142/78 96 11/05/16 19:48 97 Nasal Cannula 2.00 11/05/16 16:00 100.8 91 18 156/76 96 11/05/16 12:00 98.7 84 18 112/63 99 I/O 11/05/16 11/05/16 11/05/16 11/06/16 11/06/16 11/06/16 07:00 15:00 23:00 07:00 15:00 23:00 Intake Total 500 ml 810 ml 1140 ml Output Total 700 ml Balance -200 ml 810 ml 1140 ml Intake Oral 500 ml 240 ml IV Total 570 ml 1140 ml Output Urine Total 700 ml # Voids 2 2 3 # Bowel Movements 0 1 0 1 Result Diagram: 11/06/16 0935 11/06/16 0935 Objective Remarks Vital signs noted. Temperature 16: 00 hrs. 11/05/16 was 100.8. Afebrile since. General appearance: Elderly octogenarian who does not appear in any significant distress. Does not interact verbally, does not make eye contact. HEENT: Grossly nonlocalizing. Neck: No masses or adenopathy. Lungs: Diminished clear breath sounds. Difficulty getting full inspiratory effort. Cardiac: S1-S2, no S3 or significant murmurs. Abdomen: Soft, no organomegaly, no tenderness evident, no masses. Extremities: Feet are warm and dry, intact pedal pulses. Neurologic: Notable for increased tonicity of extremity musculature right upper extremity most significant. A/P Assessment and Plan Clinical assessment: 86-year-old woman with history of severe dementia responding to empiric antibiotics for treatment for urinary tract infection. Culture reveals Citrobacter freundi. Oral nutrition and hydration improving. Anticipate probable discharge 11/07/16 if and son are comfortable taking her home. Can complete antibiotics as an outpatient. All questions answered. Patient seen and examined. Case reviewed and discussed with the resident team. Agree with plan of care as discussed with me and documented in the resident notes. Discharge Planning Anticipate discharge home tomorrow. Problem List: (1) UTI (urinary tract infection) Status: Acute Plan: Fever and tachycardia resolved Leukocytosis increased to 22.2 Lactic acid downtrended to 0.8, reassuring Cath specimen UA with large leukocyte esterase, negative nitrite, 81 WBCs. Arana catheter was placed by ED staff; patient did not have an indwelling catheter prior to arrival Urine culture still pending, will follow Continue NS at 125 mL/hr Continue Cefepime 2 gm IV q12h Discontinue Arana catheter (2) Sepsis Status: Resolved Plan: Met sepsis criteria on admission Blood and urine cultures obtained, will follow Lactic acid downtrended to 0.8 Continue NS at 125 mL/hr Antibiotics as above Repeat CXR showing no cardiopulmonary disease (3) Alzheimer disease Status: Chronic Plan: Continue Donepezil (4) Nutrition, metabolism, and development symptoms Status: Acute Plan: Fluids: Continue NS at 125 mL/hr Electrolytes: WNLs Nutrition: Regular diet, supplement with ensure shakes DVT PPX: Lovenox 40 mg subq q24h dw Dr. Andrew wdw Dr. Izaguirre Problem Qualifiers (1) UTI (urinary tract infection): Qualified Code: N30.00 - Acute cystitis without hematuria (2) Sepsis: Qualified Code: A41.9 - Sepsis, due to unspecified organism John Izaguirre MD Nov 06, 2016 11:43
[2016-11-06 12:00] VITALS: BP 142/68; PULSE 72; RESP 18; TEMP 98.1; O2SAT 99
[2016-11-06] MEDS ORDERED: POTASSIUM CHLORIDE 10 MEQ CONTROLLED RELEASE TAB PO ONE (12:30)
[2016-11-06] MEDS: ENOXAPARIN SODIUM 40 MG/0.4 ML SYRINGE SQ SCH (15:03)
--- NOTE | 2016-11-06 15:45 | HHI.DCPOC ---
Discharge Care Plan Diagnosis: (1) Altered mental status (2) UTI (urinary tract infection) Goals to Promote Your Health * To prevent worsening of your condition and complications * To maintain your health at the optimal level Directions to Meet Your Goals Take your medications as prescribed Follow your dietary instruction Follow activity as directed Keep your appointments as scheduled Take your immunizations and boosters as scheduled If your symptoms worsen call your PCP, if no PCP go to Urgent Care Center or Emergency Room Smoking is Dangerous to Your Health. Avoid second hand smoke Call the 24-hour hour crisis hotline for domestic abuse at Mikal Ramsey MD R1 Nov 06, 2016 15:45
[2016-11-06 16:00] VITALS: BP 132/68; PULSE 72; RESP 20; TEMP 98.1; O2SAT 99
[2016-11-06 20:00] VITALS: BP 145/77; PULSE 84; RESP 18; TEMP 98.7; O2SAT 96
[2016-11-06] MEDS: DONEPEZIL HCL 5 MG TAB PO SCH (20:27)
[2016-11-06] MEDS: LATANOPROST 0.005% OPHT SOLN 2.5 ML BTL EACH EYE SCH (20:31)
[2016-11-07 00:26] VITALS: BP 173/85; PULSE 90; RESP 18; TEMP 97.9; O2SAT 95
[2016-11-07] MEDS: CEFEPIME INJ 2,000 MG in SODIUM CHLORIDE 0.9% INJ 100 ML IV SCH (02:00)
[2016-11-07 04:25] VITALS: BP 146/77; PULSE 81; RESP 18; TEMP 98.3; O2SAT 95
[2016-11-07 07:09] LABS: BASOPHIL # 0.1 TH/MM3 (0-0.2); BASOPHIL % 0.5 % (0.0-2.0); EOSINOPHIL # 0.1 TH/MM3 (0-0.4); EOSINOPHIL % 1.1 % (0.0-4.0); HEMATOCRIT 36.7 % (35.0-46.0); HEMO FLAGS DIFF FINAL; LYMPH % 26.6 % (9.0-44.0); LYMPHOCYTE # 2.6 TH/MM3 (1.0-4.8); MEAN CELL VOLUME 87.8 FL (80.0-100.0); MEAN CORPUSCULAR HEMOGLOBIN 29.4 PG (27.0-34.0); MEAN CORPUSCULAR HGB CONC 33.5 % (32.0-36.0); MONO % 10.7 % (0.0-8.0); NEUT % 61.1 % (16.0-70.0); PLATELET COUNT 229 TH/MM3 (150-450); RED BLOOD COUNT 4.18 MIL/MM3 (4.00-5.30); RED CELL DISTRIBUTION WIDTH 14.2 % (11.6-17.2); WHITE BLOOD COUNT 9.8 TH/MM3 (4.0-11.0)
[2016-11-07 07:36] LABS: BICARBONATE 25.6 MEQ/L (21.0-32.0); POTASSIUM 3.5 MEQ/L (3.5-5.1)
[2016-11-07 08:18] VITALS: BP 152/82; RESP 20; TEMP 96.1; O2SAT 95
[2016-11-07] MEDS: SODIUM CHLORIDE 0.9% FLUSH 5 ML FLUSH FLUSH SCH (09:12)
[2016-11-07] MEDS ORDERED: CIPR-9 PO (09:49)
--- NOTE | 2016-11-07 09:52 | HHI.FPPN ---
Subjective Remarks No acute events. VS unremarkable with the exception of some slightly elevated BP. reports the patient is back at her baseline and feels that she is ready to go. Objective Vitals Vital Signs Date Time Temp Pulse Resp B/P Pulse Ox O2 Delivery O2 Flow Rate FiO2 11/07/16 08:18 96.1 20 152/82 95 11/07/16 04:25 98.3 81 18 146/77 95 11/07/16 00:26 97.9 90 18 173/85 95 11/06/16 20:00 98.7 84 18 145/77 96 11/06/16 16:00 98.1 72 20 132/68 99 11/06/16 12:00 98.1 72 18 142/68 99 I/O 11/06/16 11/06/16 11/06/16 11/07/16 11/07/16 11/07/16 07:00 15:00 23:00 07:00 15:00 23:00 Intake Total 1140 ml 760 ml 200 ml Balance 1140 ml 760 ml 200 ml Intake Oral 200 ml IV Total 1140 ml 760 ml # Voids 3 1 # Bowel Movements 1 Result Diagram: 11/07/16 0651 11/07/16 0651 Objective Remarks GEN: Well-developed, well-nourished patient. No acute distress. Sitting comfortably in bed. Making good eye contact. CV: Regular rate and rhythm without obvious murmurs LUNGS: Clear to auscultation bilaterally. Normal respiratory effort. No wheezes , rales, rhonchi. GI: Soft, nontender, nondistended. No palpable masses. EXT: No edema. No calf tenderness. NEURO/PSYCH: Awake, alert. A/P Assessment and Plan 86 year old female with Alzheimer's disease brought to ED by [facility] after her was unable to arouse her the morning of 11/04. She was admitted for UTI and sepsis Discharge Planning Today dw Dr. Izaguirre Problem List: (1) UTI (urinary tract infection) Status: Acute Plan: Met sepsis criteria with fever and tachycardia. Initially presented due to altered mental status which is now improved. Fever, tachycardia, and leukocytosis resolved. UA positive for Citrobacter that is pansensitive to everything except for Macrobid -Cefepime 11/04-11/07 * Discharge with Cipro to be started tonight -Blood cultures negative -Lactic acid unremarkable -CXR 2 unremarkable (2) Sepsis Status: Resolved Plan: Met sepsis criteria on admission See treatment plan above (3) Alzheimer disease Status: Chronic Plan: Continue Donepezil (4) Nutrition, metabolism, and development symptoms Status: Acute Plan: Fluids: None Electrolytes: Unremarkable Nutrition: Regular diet, supplement with ensure shakes DVT PPX: Lovenox 40 mg subq q24h Problem Qualifiers (1) UTI (urinary tract infection): Qualified Code: N30.00 - Acute cystitis without hematuria (2) Sepsis: Qualified Code: A41.9 - Sepsis, due to unspecified organism Staci Andrew MD R2 Nov 07, 2016 09:52 Nutrition: Regular diet, supplement with ensure shakes DVT PPX: Lovenox 40 mg subq q24h dw Dr. Andrew w Dr. Izaguirre Problem Qualifiers (1) UTI (urinary tract infection): Qualified Code: N30.00 - Acute cystitis without hematuria (2) Sepsis: Qualified Code: A41.9 - Sepsis, due to unspecified organism Staci Andrew MD R2 Nov 07, 2016 09:52
--- NOTE | 2016-11-07 18:13 | HHI.DS ---
Discharge Summary Admission Date Nov 04, 2016 at 14:14 Discharge Date: Nov 07, 2016 Admitting Diagnosis altered mental status, urosepsis, dementia (1) UTI (urinary tract infection) Plan: Met sepsis criteria with fever and tachycardia. Initially presented due to altered mental status which is now improved. Fever, tachycardia, and leukocytosis resolved. UA positive for Citrobacter that is pansensitive to everything except for Macrobid -Cefepime 11/04-11/07 * Discharge with Cipro to be started tonight -Blood cultures negative -Lactic acid unremarkable -CXR 2 unremarkable (2) Sepsis Plan: Met sepsis criteria on admission See treatment plan above (3) Alzheimer disease Plan: Continue Donepezil (4) Nutrition, metabolism, and development symptoms Plan: Fluids: None Electrolytes: Unremarkable Nutrition: Regular diet, supplement with ensure shakes DVT PPX: Lovenox 40 mg subq q24h Brief History Michelle Rodgers is an 86 year old female with Alzheimer's disease brought to ED by [facility] after her was unable to arouse her this morning. Her states he wakes her up every morning at 09:30 without difficulty however this morning the patient was completely unarousable. He states she could not open her eyes and was non-verbal. He states the patient was at her baseline status throughout all of yesterday and fell asleep at what is now her normal state of health. states at baseline the patient is unable to walk around on her own and unable to feed herself. She is verbal, however due to her late-stage dementia she will speak randomly and is primarily unable to carry out a conversation. The denies any recent signs or symptoms of an illness, he denies any recent fevers, cough, urinary complaints from the patient or any foul -smelling urine, rhinorrhea or congestion, no complaints of abdominal pain or diarrhea or N/V. He denies any incontinence from the patient when going to wake her up this morning. Denies any history of seizures or any seizure-like activity today. No other sick contacts. He states her appetite has not changed recently. CBC/BMP: 11/07/16 0651 11/07/16 0651 Significant Findings Laboratory Tests Test 11/05/16 11/06/16 11/07/16 05:36 09:35 06:51 White Blood Count 22.2 TH/MM3 (4.0-11.0) Neutrophils (%) (Auto) 80.7 % (16.0-70.0) Monocytes (%) (Auto) 9.9 % (0.0-8.0) 9.5 % (0.0-8.0) 10.7 % (0.0-8.0) Neutrophils # (Auto) 18.0 TH/MM3 (1.8-7.7) Monocytes # (Auto) 2.2 TH/MM3 1.0 TH/MM3 1.1 TH/MM3 (0-0.9) (0-0.9) (0-0.9) Chloride Level 109 MEQ/L 112 MEQ/L (98-107) (98-107) Estimat Glomerular Filtration 76 ML/MIN (>89) 80 ML/MIN (>89) Rate Random Glucose 112 MG/DL 116 MG/DL (74-106) (74-106) Calcium Level 8.3 MG/DL 8.1 MG/DL (8.5-10.1) (8.5-10.1) Aspartate Amino Transf 12 U/L (15-37) (AST/SGOT) Alkaline Phosphatase 142 U/L (45-117) Albumin 2.8 GM/DL (3.4-5.0) Potassium Level 3.1 MEQ/L (3.5-5.1) PE at Discharge GEN: Well-developed, well-nourished patient. No acute distress. Sitting comfortably in bed. Making good eye contact. CV: Regular rate and rhythm without obvious murmurs LUNGS: Clear to auscultation bilaterally. Normal respiratory effort. No wheezes , rales, rhonchi. GI: Soft, nontender, nondistended. No palpable masses. EXT: No edema. No calf tenderness. NEURO/PSYCH: Awake, alert. Hospital Course Patient is an 86-year-old female with a PMH significant for Alzheimer's. Presented due to altered mental status and found to have UTI and sepsis. She was initially treated with cefepime and IV fluids with a good response. Patient quickly improved to baseline and was able to tolerate a diet. Patient was discharged in stable condition with Cipro to complete a 12 day course of antibiotics. Pt Condition on Discharge: Stable Discharge Disposition: Discharge Home Discharge Instructions DIET: Follow Instructions for: As Tolerated, No Restrictions Activities you can perform: Regular-No Restrictions Follow up Referrals: PCP Follow-up - 1 Week with Mark Nevarez Jr., MD New Medications: Ciprofloxacin (Cipro) 500 Mg Tab 500 MG PO BID Infection #20 Ref 0 TAB Continued Medications: Donepezil (Donepezil) 5 Mg Tab 5 MG PO HS Dementia Ref 0 TAB Latanoprost Opth Drops (Latanoprost Opth Drops) 0.005% Drops 1 DROP EACH EYE HS Refrigerate until opened. Glaucoma #2.5 Ref 0 ML ([Mattress]) [facility] Bed Dx: G30.9 Staci Andrew MD R2 Nov 07, 2016 18:13
[2016-11-22] MEDS ORDERED: DONE5TAB7 PO (11:06)
== END 2016-11-07 11:03 | disposition home or self-care (01) | DRG 872 ==
LOC: NEPE 11:01 → NEDA 14:14 → N05B 17:46
PROVIDERS: ADMIT Family Medicine; ATTEND Family Medicine
DX: A41.9 Sepsis, unspecified organism (principal); I11.9 Hypertensive heart disease without heart failure; N39.0 Urinary tract infection, site not specified; B96.89 Other specified bacterial agents as the cause of diseases classified elsewhere; G30.9 Alzheimer's disease, unspecified; F02.80 Dementia in other diseases classified elsewhere, unspecified severity, without behavioral disturbance, psychotic disturbance, mood disturbance, and anxiety; E78.5 Hyperlipidemia, unspecified; E78.00 Pure hypercholesterolemia, unspecified; Z66 Do not resuscitate
CPT/HCPCS: 51702; 70450; 71010; 80048; 80053; 81001; 82550; 83605; 83690; 84443; 84484; 85025; 85610; 85730; 87040; 87077; 87086; 87186; 93005; 96360; 96361; J0692; J1650; J7030

== ENCOUNTER → 2017-03-17 | Outpatient (CLI) | payer MEDICARE ==
[~2017-03-17] MED LIST changes: -CEFEPIME INJ 2,000 MG in SODIUM CHLORIDE 0.9% INJ 100 ML IV SCH; -TIMO0.2517 EACH EYE
[2017-03-17 13:23] LABS: AUTOMATED NEUTROPHIL # 3.9 TH/MM3 (1.8-7.7); BASOPHIL # 0.1 TH/MM3 (0-0.2); BASOPHIL % 0.9 % (0.0-2.0); EOSINOPHIL # 0.1 TH/MM3 (0-0.4); EOSINOPHIL % 1.4 % (0.0-4.0); HEMATOCRIT 42.5 % (35.0-46.0); HEMO FLAGS DIFF FINAL; LYMPH % 32.9 % (9.0-44.0); LYMPHOCYTE # 2.4 TH/MM3 (1.0-4.8); MEAN CELL VOLUME 90.1 FL (80.0-100.0); MEAN CORPUSCULAR HEMOGLOBIN 28.8 PG (27.0-34.0); MONO % 11.7 % (0.0-8.0); NEUT % 53.1 % (16.0-70.0); PLATELET COUNT 231 TH/MM3 (150-450); RED BLOOD COUNT 4.72 MIL/MM3 (4.00-5.30); RED CELL DISTRIBUTION WIDTH 14.3 % (11.6-17.2); WHITE BLOOD COUNT 7.4 TH/MM3 (4.0-11.0)
[2017-03-17 13:50] LABS: ANION GAP 6 MEQ/L (5-15); AST (GOT) 12 U/L (15-37); BICARBONATE 29.6 MEQ/L (21.0-32.0); BLOOD UREA NITROGEN 11 MG/DL (7-18); CHLORIDE 104 MEQ/L (98-107); GLOMERULAR FILTRATION RATE 101 ML/MIN (>89); GLUCOSE,FASTING 86 MG/DL (74-99); POTASSIUM 3.9 MEQ/L (3.5-5.1); SODIUM (NA) 140 MEQ/L (136-145)
[2017-03-17 13:55] LABS: ALKALINE PHOSPHATASE 150 U/L (45-117); ALT (GPT) 15 U/L (10-53); HDL CHOLESTEROL 44.2 MG/DL (40.0-60.0); LDL CHOLESTEROL 119 MG/DL (0-99); TOTAL BILIRUBIN ADULT 0.5 MG/DL (0.2-1.0)
== END ==
LOC: PLAB 09:59
PROVIDERS: ATTEND Family Medicine
DX: E78.5 Hyperlipidemia, unspecified (principal); G30.9 Alzheimer's disease, unspecified
CPT/HCPCS: 36415; 80053; 80061; 85025